=== PATIENT | male | born 1955 | race African-American/Black ===

== ENCOUNTER 2018-06-05 08:04 | Day surgery (SDC) | payer OTHER ==
[2018-06-04 11:34] VITALS: BMI 34.5
[2018-06-05] MEDS ORDERED: CEFAZOLIN 2 GM/50 ML BAG ONE (08:44)
[2018-06-05 09:04] LABS: #Basophils 0.1 thou/uL (0.0-0.2); #Eosinphils 0.2 thou/uL (0.0-0.7); #Lymphocytes 2.5 thou/uL (1.20-3.40); #Monocytes 0.3 thou/uL (0.11-0.59); #Neutrophils 3.4 thou/uL (1.40-6.50); %Basophils 1.5 % (0.0-1.0); %Eosinophils 3.2 % (0.0-10.0); %Lymphocytes 38.5 % (21.0-51.0); %Monocytes 4.3 % (0.0-10.0); %Neutrophils 52.5 % (42.0-75.0); Hemoglobin 16.3 g/dL (14.0-18.0); Mean Corpuscular HGB CONC 34.2 g/dL (32.0-36.0); Mean Corpuscular Hemoglobin 30.2 pg (27.0-31.0); Mean Corpuscular Volume 88.5 fL (78.0-98.0); Mean Platelet Volume 8.5 fL (7.4-10.4); Platelet Count 162 thou/uL (130-400); RBC Distribution Width 11.9 % (11.5-14.5); Red Blood Cell (RBC) Count 5.38 mill/uL (4.70-6.10); White Blood Cell (WBC) Count 6.6 thou/uL (4.8-10.8)
[2018-06-05 09:07] LABS: Bilirubin Negative (Negative); Blood, Urine Negative (Negative); Clarity CLEAR (Clear); Glucose, Urine (Dipstick) 500 mg/dL (Negative); Leukocyte Negative (Negative); Nitrite Negative (Negative); Protein, Urine (Dipstick) Negative (Neg-Trace); Specific Gravity, Urine 1.014 (1.002-1.036); Urobilinogen 0.2 mg/dL (0.2-1.0); pH, Urine 6.5 (5.0-9.0)
[2018-06-05 09:09] LABS: Bacteria/HPF None Seen HPF (None Seen); Hyaline Casts/LPF 0-3 HYALINE CAST LPF (0-3 Hyaline); RBC/HPF 0-3 HPF (0-3); Squamous Epithelial None Seen HPF (0-3); WBC/HPF None Seen HPF (0-3)
[2018-06-05 09:25] LABS: Anion Gap 13 mmol/L (10-20); BUN (Urea Nitrogen) 13 mg/dL (8.4-25.7); Calc. Creatinine Clearance 129 mL/min (70-130); Calcium 9.4 mg/dL (7.8-10.44); Carbon Dioxide 28 mmol/L (23-31); Chloride 104 mmol/L (98-107); Estimated GFR-MDRD Greater than 90; Glucose 138 mg/dL (80-115); Potassium 3.6 mmol/L (3.5-5.1); Sodium 141 mmol/L (136-145)
--- NOTE | 2018-06-05 10:08 | RAD ---
CHEST TWO VIEWS: INDICATIONS: Preop evaluation. FINDINGS: There is no lobar consolidation, effusion, or pneumothorax. The osseous structures are intact. The cardiac silhouette is within normal limits in size. There are metallic anchors seen at the right piotr ulder. IMPRESSION: No focal consolidation. POS: [facility]
[2018-06-05] MEDS ORDERED: Betamet Acet/Betamet Na Ph 30 MG/5 ML VIAL ONE (13:52)
[2018-06-05] MEDS ORDERED: Bupivacaine PF 0.5% 30 ML VIAL ONE ×2 (13:52→15:51)
[2018-06-05] MEDS ORDERED: Bacitracin Zinc Ointment 30 gm TUBE ONE (13:52)
[2018-06-05] MEDS ORDERED: Midazolam HCl 2 mg/2 ml Vial ONE ×2 (14:03→14:59)
[2018-06-05] MEDS ORDERED: Fentanyl 100 MCG/2 ML VIAL ONE ×4 (14:03→18:26)
[2018-06-05] MEDS ORDERED: Thrombin 5000 UNITS/5 ML VIAL ONE (16:11)
[2018-06-05] MEDS ORDERED: Ketorolac Tromethamine 30 MG/ML VIAL ONE (18:26)
--- NOTE | 2018-06-08 11:50 | OP ---
DATE OF PROCEDURE: 06/05/2018 PREOPERATIVE DIAGNOSES: 1. Left carpal tunnel syndrome. 2. 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 POSTOPERATIVE DIAGNOSES/FINDINGS: 1. Carpal tunnel shows tight transverse carpal ligament with early allograft formation and stippling. 2. At the ulna elbow, we had a previous 2 cm mini-release, the patient had so much scarring over a 2 cm area that he had an actual segment of the nerve that was compressed less than 50% of the size of the most of the nerve, and for 8 mm on either side, there was a bulbous dilation of the nerve from the constriction, thus this necessitated transposition. ESTIMATED BLOOD LOSS: 20 mL. TOURNIQUET TIME: 105 minutes. PROCEDURES PERFORMED: 1. Olecranon bursectomy, radical, left. 2. Left long-arm splint application. 3. Left carpal tunnel release. 4. Left ulnar nerve neuroplasty at the elbow. 5. Left ulnar nerve submuscular transposition for complex procedure, 59 modifier, due to: 6. a. Previous surgery. b. Significant scar. c. Bulbous nerve lesion requiring nearly external neurolysis and magnification. DESCRIPTION OF PROCEDURE: After successful general endotracheal anesthesia without block, the patient then had limb prepped and draped. The patient had a midline incision outlined with a slightly medialized zigzag over the olecranon prominence, 5 fingerbreadths distal and 8 fingerbreadths proximal to the olecranon. The patient then had a mini carpal tunnel incision outlined beginning 5 mm distal volar flexion crease and coursing into Pina's cardinal line in line with the ring finger. We exsanguinated the limb, inflated a sterile tourniquet to 250 mmHg pressure, began with a carpal tunnel release. Incision was carried through skin and subcutaneous tissue until we visualized the palmaris longus fascial insertion over the transverse carpal ligament. It began release in the midportion of this palmaris longus tendon distally. We preserved the nerve to take all branches. We then performed the same technique from their midportion of the transverse carpal ligament proximally and once we saw complete release, there was a 1 cm area of stippling of the nerve with early allograft formation. No tenosynovitis was seen. We placed 2 mL of Celestone here and then closed this incision with interrupted 4-0 nylon mattress pattern. We then used a pack of nomenclature (burn pack) here at this facility to hold the arm in appropriate position for a posterior approach and made the posterior approach to the skin and subcutaneous tissue, and here we saw thickening in the bursa. We then identified the ulnar nerve at the most proximal aspect and incision tucked in on the significant scar, so we found as far proximal as possible and began to release. We then placed an arm back in an ulnar aspect up position in the external rotation and then found the remaining portion of the ulnar nerve released it. Once we made release from his far proximal and distal once we got within 2 cm of the medial epicondyle or within 2 cm of the previous incision, we could begin to see the scar become thick. As we released it, we noticed that there was a bulbous into the nerve almost 50% wider than the rest of the nerve, which was 8 mm long, followed by the compression within the primary cubital tunnel itself. When we released this, we saw the nerve was narrowed over 2 cm area. It became bulbous again for about 4 mm right at the takeoff of the nerve to the flexor carpi ulnaris and radialis muscles. Now, we done a complete release. Now, we realized that this nerve was in such a bad condition, transposition would be indicated. We now freed the nerve enough for transposition. Before doing this, we then protected the nerve, visualized the medial antebrachial cutaneous nerve, protected their branches as they were inserted into the medial skin flap, but them from the intermuscular septum and removed a portion of the muscle itself from 9 cm long to prevent recurrent compression for the transposed nerve. We now made a Z-incision on the medial epicondyle. The incision with the longest limb being right next to the nerve, protecting the nerve, freed it, transposed the nerve and muscle belly, placed 2 mL of Celestone over this and then closed the interval by advancing or elongating the one limb of the Z-plasty on another. We used a #1 Ethibond interrupted [id number] to do the repair and did not violate or compress the nerve. Nerve was stable in flexion and extension from 0 to 150 degrees. We then resected the bursa using tenotomy scissors and found there was no abnormality after this. We obtained hemostasis with Bovie, released the tourniquet and closed this incision with a running 3-0 Monocryl, which had excellent apposition, so we put Steri-Strips on the epidermis. He had a total of 40 mL injection with the final 20 given as wounds were closed, 15 in the elbow and 5 in the carpal tunnel incision. A long-arm splint was applied and he left the operating room without evidence of anesthetic or operative complication. Job ID: [id number]
== END 2018-06-05 19:47 | disposition home or self-care (01) ==
LOC: SDC 08:04
PROVIDERS: ATTEND Orthopaedic Surgery Hand Surgery
PROC: 01N50ZZ Release Median Nerve, Open Approach (ICD-10-PCS; principal; 2018-06-05)
PROC: 01N40ZZ Release Ulnar Nerve, Open Approach (ICD-10-PCS; principal; 2018-06-05)
DX: G56.02 Carpal tunnel syndrome, left upper limb (principal); G56.22 Lesion of ulnar nerve, left upper limb; M19.90 Unspecified osteoarthritis, unspecified site; E78.00 Pure hypercholesterolemia, unspecified; E11.9 Type 2 diabetes mellitus without complications; I10 Essential (primary) hypertension; F17.200 Nicotine dependence, unspecified, uncomplicated; M75.101 Unspecified rotator cuff tear or rupture of right shoulder, not specified as traumatic; M75.81 Other shoulder lesions, right shoulder; Z79.84 Long term (current) use of oral hypoglycemic drugs; Z79.899 Other long term (current) drug therapy; Z88.5 Allergy status to narcotic agent
CPT/HCPCS: 71046; 80048; 81001; 85025; 88305; 93005; 93010; J0702; J1885; J2250; J3010; S0020

== ENCOUNTER 2018-08-12 10:13 | Outpatient (CLI) | payer OTHER ==
--- NOTE | 2018-08-12 13:03 | MRI ---
EXAM: MRI right shoulder PROVIDED CLINICAL HISTORY: Right shoulder pain COMPARISON: None FINDINGS: Postoperative changes of prior rotator cuff repair are demonstrated. Susceptibility artifact related to the postoperative change limits evaluation. There is evidence for full-thickness, fullwidth retrac jessee tearing of the supraspinatus and infraspinatus tendons with retraction to about the level of the acromioclavicular joint. The subscapularis and teres minor tendons appear intact. There is muscular v olume loss involving supraspinatus and infraspinatus with mild fatty infiltration involving infraspin atus. There is nondisplaced degenerative tearing suspected involving the posterior superior glenoid labrum. The glenoid labrum and glenohumeral articular cartilage are suboptimally evaluated in the absence of joint distention. There is absence of normal articular cartilage involving the anterior and central portions of the glenoid. There is a small glenohumeral joint effusion, freely communicating with the subacromial subdeltoid bu rsa. Changes of prior acromioplasty redemonstrated. No focal concerning regional marrow or muscular s ignal abnormality is apparent. IMPRESSION: 1. 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 2. Nondisplaced degenerative tearing involving the posterior-superior glenoid labrum. 3. Glenoid articular chondrosis.
== END 2018-08-12 10:14 | disposition home or self-care (01) ==
LOC: SCSMRI 10:13
PROVIDERS: ATTEND Orthopaedic Surgery Hand Surgery
DX: M75.101 Unspecified rotator cuff tear or rupture of right shoulder, not specified as traumatic (principal); M25.811 Other specified joint disorders, right shoulder; S46.911A Strain of unspecified muscle, fascia and tendon at shoulder and upper arm level, right arm, initial encounter; S43.401A Unspecified sprain of right shoulder joint, initial encounter

== ENCOUNTER 2019-04-19 17:30 | Outpatient (CLI) | payer OTHER | END 2019-04-19 17:31 | disposition home or self-care (01) | LOC: SLEEPLAB 17:30 | PROVIDERS: ATTEND Internal Medicine | DX: G47.33 Obstructive sleep apnea (adult) (pediatric) (principal); R51 Headache; R53.83 Other fatigue; R06.83 Snoring; K21.9 Gastro-esophageal reflux disease without esophagitis; R35.1 Nocturia; E11.9 Type 2 diabetes mellitus without complications; I10 Essential (primary) hypertension | CPT/HCPCS: 95806 ==

== ENCOUNTER 2020-10-31 14:58 | Outpatient (CLI) | payer MEDICARE, OTHER | END 2020-10-31 14:59 | disposition home or self-care (01) | LOC: TBSIIMAG 14:58 | PROVIDERS: ATTEND Internal Medicine Clinical Cardiac Electrophysiology | DX: M50.11 Cervical disc disorder with radiculopathy, high cervical region (principal) | CPT/HCPCS: 72141 ==